=== PATIENT | female | born 2000 | race Caucasian/White ===

== ENCOUNTER → 2018-02-14 | Outpatient (CLI) | payer OTHER ==
[2018-02-14] VITALS (26 sets, daily range): BP systolic 46–119; BP diastolic 28–77
[~2018-02-14] VITALS: Ht 162.6 cm; Wt 62.6 kg
[~2018-02-14] MED LIST: ATROPINE INJECTION 1 MG/10 ML SYR (ABBOTT) ONE; NS IV 1000 ML 1,000 ML IV SCH; NS IV 1000 ML 1,000 ML ONE
--- NOTE | 2018-02-14 10:58 | Cardiology Tilt Table Test ---
Cardiology-Tilt Table Test Tilt Table Test Date 02/14/[address] Samuels Baseline Vitals Vital Signs Date Time Temp Pulse Resp B/P (MAP) Pulse Ox O2 Delivery O2 Flow Rate FiO2 02/14/18 07:36 99.6 62 20 109/68 (82) 99 Vital Signs VS - Last 72 Hours, by Label 02/14/18 02/14/18 02/14/18 02/14/18 07:36 08:29 08:31 08:32 Temp 99.6 Pulse 62 73 79 81 Resp 20 17 B/P (MAP) 109/68 (82) 105/77 (86) 115/75 (88) 112/67 (82) Pulse Ox 99 100 100 99 02/14/18 02/14/18 02/14/18 02/14/18 08:33 08:34 08:35 08:36 Pulse 82 81 81 82 B/P (MAP) 103/67 (79) 108/76 (87) 119/63 (81) 103/70 (81) Pulse Ox 99 100 100 99 02/14/18 02/14/18 02/14/18 02/14/18 08:37 08:38 08:39 08:40 Pulse 84 83 81 59 B/P (MAP) 107/68 (81) 106/76 (86) 111/56 (74) Pulse Ox 100 100 99 99 02/14/18 02/14/18 02/14/18 02/14/18 08:42 08:43 08:44 08:45 Pulse 60 61 58 66 Resp 18 B/P (MAP) 105/57 (73) 102/51 (68) 102/57 (72) 102/55 (71) Pulse Ox 98 99 100 100 02/14/18 02/14/18 02/14/18 02/14/18 08:47 08:48 08:50 08:51 Pulse 95 98 93 102 Resp 17 B/P (MAP) 110/68 (82) 109/61 (77) 109/68 (82) 110/55 (73) Pulse Ox 99 99 99 98 02/14/18 02/14/18 02/14/18 02/14/18 08:52 08:54 08:56 08:57 Pulse 103 52 46 52 B/P (MAP) 105/53 (70) 78/35 (49) 46/28 (34) 99/60 (73) Pulse Ox 98 98 02/14/18 02/14/18 02/14/18 09:00 09:06 09:12 Pulse 61 59 58 B/P (MAP) 103/60 (74) 101/63 (76) 109/72 (84) Pulse Ox 97 98 99 Patient was tilted to 75 degrees for [10] minutes, then returned to supine position, given [2] sublingual nitroglycerin tablets, then tilted again to 75 degrees for [15] minutes. During test, patient was: had a syncopal event at minute (11, BP76/28, HR 46, Telemetry revealed sinus veronica) In Conclusion;: Vasovagal Syncope with (Vasodepressor Syncope) Patient was instructed to increase fluid and salt intake, wear CARL hose. Discussed sitting or lying down when she is symptomatic with dizziness. Patient voiced understanding. Will follow up as outpatient This is Shani Orellana PA-C as a scribe for Dr. Lux. SHANI MUNOZ February 14, 2018 10:58
== END ==
LOC: CARD 07:00
PROVIDERS: ATTEND Internal Medicine Cardiovascular Disease
DX: R07.9 Chest pain, unspecified (principal); R55 Syncope and collapse; E03.9 Hypothyroidism, unspecified
CPT/HCPCS: 93306; 93660